=== PATIENT | male | born 1965 | race Caucasian/White ===

== ENCOUNTER → 2023-11-02 14:39 | Outpatient (REF) | payer BC, SELFPAY | LOC: DHCBS MAIN 14:39 | PROVIDERS: ATTENDING PHYSICIAN Internal Medicine Cardiovascular Disease; FAMILY PHYSICIAN Internal Medicine | DX: R00.2 Palpitations (principal) | CPT/HCPCS: 93306 ==

== ENCOUNTER → 2024-12-20 06:37 | Outpatient (REF) | payer OTHER, SELFPAY | LOC: RCS 06:37 | PROVIDERS: ATTENDING PHYSICIAN Internal Medicine Cardiovascular Disease; FAMILY PHYSICIAN Internal Medicine | DX: I48.91 Unspecified atrial fibrillation (principal); R06.02 Shortness of breath | CPT/HCPCS: 93306 ==

== ENCOUNTER 2025-01-25 06:47 | Day surgery (SDC) | payer OTHER, SELFPAY ==
--- NOTE | 2025-01-10 12:51 | HPS.HSE ---
Family Physician
-
Family Physician: NO INTERVIEW UNKNOWN
Chief Complaint
-
Paroxysmal atrial fibrillation.
History of Present Illness
The patient is a 59-year-old male presenting today for paroxysmal atrial fibrillation. The patient reports a history of intermittent palpitations, lightheadedness, exertional dyspnea, and fatigue secondary to this diagnosis. He was taking
Metoprolol Succinate for pharmacological therapy but this was stopped due to reported intolerability. He was previously advised to start Eliquis; however, he ran out of samples and the cost of the medication was rather expensive. He will be
restarted on this medication as of 01/09/2025. He notes that his current symptoms associated with his atrial fibrillation greatly interfere with his activities of daily living and overall impact his quality of life. He is interested in pursuing with
pulmonary vein isolation for further arrhythmia management. Prior to undergoing his ablation, he will proceed with a transesophageal echocardiogram given his recent non-compliance with Eliquis and, therefore, increased risk for a left atrial
appendage thrombus. He denies any current complaints today such as chest pain, shortness of breath at rest, nausea, vomiting, diarrhea, dizziness, cough, sore throat, or fever.
Medical History
Past Medical History
Past Medical History: Reports Other
Additional Past Medical History:
1. Paroxysmal atrial fibrillation, newly restarted on Eliquis for oral anticoagulation.
2. Hyperlipidemia.
3. GERD.
4. Nonobstructive Schatzki ring.
5. Peptic ulcer disease.
6. Colon polyps.
7. Diverticulosis.
8. Irritable bowel syndrome.
9. Probable liver hemangioma.
10. Migraines.
11. ADHD.
12. Anxiety.
13. Depression.
Past Surgical History: Reports Other
Additional Past Surgical History:
1. Left ACL repair.
2. Colonoscopy x5.
3. Endoscopy.
Social History
Tobacco: Non-smoker
Alcohol: Other (Social. )
Personal:
Living: Other (The patient lives in a two-story home with his .)
Family History
Family History: Not pertinent
Allergies / Home Medications
Allergy/Medication List:
Home medications:
1. Alprazolam 0.5 mg p.o. daily as needed.
2. Apixaban 5 mg p.o. twice a day.
3. Biotin one capsule p.o. daily.
4. Adderall XR 10 mg p.o. daily as needed.
5. Escitalopram 5 mg p.o. daily.
6. Fish oil one capsule p.o. daily.
7. Ibuprofen 600 mg p.o. every six hours as needed.
8. Probiotic one capsule p.o. daily.
Allergies: No known allergies.
Review of Systems
-
A 12 point ROS was completed and negative except as noted: Yes
Physical Exam
Vital Signs
VITAL SIGNS: Blood pressure 114/80, heart rate 58, respirations 18, pulse ox 99% on room air.
Height 5 feet 9 inches, weight 78.7 kg, BMI 25.6.
Physical Exam
General: Well Developed, Well Nourished and No Apparent Distress
HEENT: NormoCephalic, Moist mucous membranes, Atraumatic and PERRLA
Respiratory: Clear
Cardiac: Bradycardia
GI: Soft, Non Tender and Non Distended
Musculoskeletal: No Edema and Normal Gait & Station
Skin: Warm and Dry
Neuro: AO x 3 and Nonfocal/grossly intact
Laboratory Results
-
DIAGNOSTIC STUDIES as of 01/09/2025: White blood cell count 4.8, hemoglobin is 14.3, platelet count 172,000. PT 13.4, INR 0.97. Sodium 137, potassium 4.4, BUN 14, creatinine 0.9, glucose 96, calcium 9.1, magnesium 2.0, AST 24, ALT 21, albumin 4.6.
Blood type O negative.
EKG 01/09/2025: Sinus bradycardia, otherwise normal EKG. When compared with the EKG of September 02, 2022, no significant change was found.
Chest CT 01/09/2025: Short segment common vestibule for the left superior and inferior pulmonary veins, fairly commonly seen and considered normal variant. No evidence for left atrial thrombus.
Echocardiogram 12/20/2024: Ejection fraction is 60%. Trace mitral regurgitation with normal left atrium. The study is similar to the prior study of October 2020.
Stress echocardiogram 10/13/2022: Normal stress echocardiogram with normal hemodynamic response to exercise. Overall low risk stress test.
Impression/Plan
-
IMPRESSION/PLAN:
1. Paroxysmal atrial fibrillation: The patient is in need of pulmonary vein isolation. Prior to undergoing this, however, he will proceed with a transesophageal echocardiogram with Dr. Umair Freeman on 01/25/2025 to definitively rule out a left
atrial appendage thrombus. The benefits and risks of the procedure have been explained to the patient. The patient understands these risks and wishes to proceed. Strict compliance with his newly prescribed Eliquis was advised pre-operatively.
== END 2025-01-25 09:47 | disposition home or self-care (01) ==
LOC: CATH 06:47
PROVIDERS: ATTENDING PHYSICIAN Internal Medicine Cardiovascular Disease; FAMILY PHYSICIAN Nurse Practitioner
DX: I48.0 Paroxysmal atrial fibrillation (principal); I08.3 Combined rheumatic disorders of mitral, aortic and tricuspid valves; I70.0 Atherosclerosis of aorta; E78.5 Hyperlipidemia, unspecified; K21.9 Gastro-esophageal reflux disease without esophagitis; K22.2 Esophageal obstruction; Z86.0100 Personal history of colon polyps, unspecified; K58.9 Irritable bowel syndrome, unspecified; G43.909 Migraine, unspecified, not intractable, without status migrainosus; F41.9 Anxiety disorder, unspecified; F32.A Depression, unspecified; Z79.899 Other long term (current) drug therapy; F90.9 Attention-deficit hyperactivity disorder, unspecified type
CPT/HCPCS: 93312; 93320; 93325

== ENCOUNTER 2025-01-29 08:37 | Day surgery (SDC) | payer OTHER, SELFPAY ==
[2025-01-09 09:05] VITALS: BMI 25.6
[2025-01-09 09:23] LABS: % Basophils 0.6 % (0-2); % Eosinophils 1.3 % (0-6); % Immature Granulocytes 0.2 % (0-0.5); % Lymphocytes 31.7 % (20.5-51.1); % Monocytes 6.5 % (1.7-9.3); % Neutrophils 59.7 % (42.2-75.2); Absolute Eosinophils 0.1 10^3/uL (0-0.7); Absolute Lymphocytes 1.5 10^3/uL (1.2-3.4); Absolute Monocytes 0.3 10^3/uL (0.1-0.6); Absolute Neutrophils 2.9 10^3/uL (1.4-6.5); Hemoglobin 14.3 g/dL (13.0-18.0); Mean Corp Hgb Conc. 35.8 g/dL (33.0-37.0); Mean Corpuscular Hgb 29.4 pg (27.0-31.0); Mean Corpuscular Volume 82.1 fL (80.0-94.0); Mean Platelet Volume 9.5 fL (7.4-10.4); Nucleated Red Blood Cells % 0 % (-); Platelet Count 172 10^3/uL (130-400); Red Blood Cell Count 4.87 10^6/uL (4.70-6.10); Red Cell Dist. Width 12.2 % (11.5-14.5); White Blood Cell Count 4.8 10^3/uL (4.8-10.8)
[2025-01-09 09:35] LABS: ALT (SGPT) 21 U/L (0-50); AST (SGOT) 24 U/L (17-59); Albumin 4.6 g/dl (3.5-5.0); Alkaline Phosphatase 59 U/L (38-126); Blood Urea Nitrogen 14 mg/dl (9-20); Calcium 9.1 mg/dl (8.4-10.2); Carbon Dioxide 28 mmol/L (22-30); Chloride 101 mmol/L (98-107); Estimated Creatinine Clearance 87 ml/min; Glucose 96 mg/dl (70-99); Potassium 4.4 mmol/L (3.5-5.1); Sodium 137 mmol/L (135-145); Total Bilirubin 0.6 mg/dl (0.2-1.3); eGFR > 60.00
[2025-01-09 09:41] LABS: INR 0.97; PT 13.4 Sec (11.4-14.6)
[2025-01-29] VITALS (14 sets, daily range): BP systolic 103–135; BP diastolic 62–87
--- NOTE | 2025-01-29 11:39 | ITS.CL.ABL ---
[employer] - Ablation
Ablation
Procedure Report:
Primary Communications Technologist: Dr. Sukumar Sanchez
Procedure Date: 01/29/2025
Patient History:
Patient is a pleasant 59-year-old male with a past medical history significant for anxiety, ADHD, palpitations, family history of coronary disease, GERD, migraines, IBS, and symptomatic paroxysmal atrial fibrillation.
See H&P for complete details.
Indication:
Symptomatic paroxysmal atrial fibrillation
Arrhythmia Specific History:
Prior Medical Therapies for Rate and Rhythm Control:
X Beta-kacie
[ ] Calcium channel-kacie
[ ] Amiodarone
[ ] Dronederone
[ ] Sotalol
[ ] Flecainide
[ ] Dofetilide
[ ] Options limited by bradycardia
[ ] Options limited by comorbid renal disease
Prior Procedural Therapies for AF/AFL:
[ ] Cardioversion
[ ] Pulmonary Vein Isolation
[ ] Posterior Wall Isolation
[ ] Additional lines (Specify)
[ ] Surgical Dewitt-MAZE or PVI (Specify)
Procedure Performed:
X AF ablation procedure (13187) -- includes LA/CS pacing, trans-septal, 3D mapping, + ICE (PVI)
[ ] +IV drug (11562)
[ ] +Other Arrhythmia (11829)
[ ] +Other AF Line/ablation (04862)
Risks and expected recovery has been explained in detail. Alternative options have been explored, and in a shared-decision making fashion we have decided that this was the most appropriate procedure.
Method
NPO status confirmed. Grounding pad applied. Defibrillator pads applied. Continuous surface ECG, pulse oximetry, and blood pressure were monitored. Procedure was performed under general anesthesia, with anesthesia services.
Both groins were clipped, prepped with Chloraprep, and draped in sterile fashion. Time out was called. Local anesthesia administered with bupivacaine. The right femoral vein was accessed for catheter placement, using ultrasound guidance (images
saved to record), micro-puncture needle/wire, and modified seldinger technique. 3 sheaths were placed. The following catheters were used:
[ ] Tacticath SE (D/F Curve) ablation catheter
X Viewflex 9Fr ICE catheter
X Inquiry decapolar 6Fr diagnostic catheter
[ ] CRD Hex 6Fr
[ ] Arctic Front Advance Cryoballoon ([ ]28mm[ ]23mm)
[ ] Achieve Advance mapping catheter ([ ]15mm[ ]20mm)
X FlexCath Contour 10 Fr with PulseSelect PFA Catheter
X Advisor HD Grid Mapping Catheter, SE
[ ] AcusHiringThing AcuNav 8 Fr ICE catheter
[ ]Other: [ ]
Intracardiac ultrasound (ICE) was carefully advanced into the right atrium to guide sheath placement over a J-wire, catheter placement, guide trans-septal puncture, identify potential complications, identify anatomic structures and ensure proper
contact between ablation catheter and tissue.
Heparin was given prior to trans-septal puncture. Heparin was given to achieve and maintain a target ACT of 300-400 seconds throughout the procedure.
Trans-septal access was performed under ICE guidance. The trans-septal puncture was performed with a SafeSept wire through a Brockenbrough needle assembly through the steerable sheath. The wire was visualized as it entered the LSPV and system
advanced under ICE guidance and fluoroscopy into the LA. The Brockenbrough needle assembly, SafeSept wire and sheath dilator were removed under negative pressure. LA pressure was measured and recorded.
ICE and 3D mapping was performed to identify relevant cardiac structures. A careful 3D map was created to assess for regions of low-voltage and abnormal electrogram signals using HD grid mapping catheter and PulseSelect catheter. Additional mapping
was performed as outlined below. Patient was noted to have a left superior and inferior veins entering into a common ostium with separate right-sided superior and inferior veins.
Prior to ablation, glycopyrrolate was provided. PulseSelect catheter was advanced over J-wire to the ostium of each vein. Pulmonary vein isolation was performed with ostial and antral lesions in a circumferential manner. Contact was visualized via
EAM, ICE, fluoroscopy, and EGM signals. Following completion of ablation lesions, a post-ablation voltage/activation map was performed in sinus rhythm. Entrance and exit block were confirmed for each vein.
Catheter and sheath were removed from the left atrium and post-ablation intracardiac echo evaluation was consistent with pre-ablation with no changes and no pericardial effusion and there is no left atrial thrombus or left ventricle thrombus seen.
Electrophysiology study was performed. Hemostasis was obtained with Vascade for each sheath and with manual pressure. Protamine was used for reversal.
Estimated Blood Loss
5 mL
Complications
None
Fluoroscopy: 2.6 minutes; 7.21 mGy; DAP 0.8
LA Pressure: Pre 1 mmHg, post 2 mmHg
Baseline Intervals:
Rhythm: SR
LA: 133 ms
QRS: 82 ms
QT: 371 ms
QTc: 343 ms
Post-Procedure Intervals:
LA: 133 ms
QRS: 82 ms
QT: 399 ms
QTc: 406 ms
AVWB: 480 ms
AVNERP: 600/250 ms
AERP: 600/240 ms
Recommendations
- Bedrest with straight-leg precautions as ordered
- Anticipate same day discharge if patient meeting clinical metrics
- Resume home medications as indicated
- Ok to resume anticoagulation tonight if patient and groin sites stable
- PPI daily for 30 days
- Plan for follow-up in office as scheduled
Mc Horan DO, FACC, RS
Clinical Cardiac Event Executive
cc: Dr Sukumar Sanchez; Dr Ale Marino
[2025-01-29 12:20] LABS: ACT-LR - POC 376 Seconds (116-155)
[2025-01-29 13:16] LABS: ACT-LR - POC 161 Seconds (116-155)
[2025-01-29 14:47] LABS: ACT-LR - POC > 397 Seconds (116-155)
[2025-01-29 14:47] LABS: ACT-LR - POC > 397 Seconds (116-155)
[2025-01-29 14:47] LABS: ACT-LR - POC > 397 Seconds (116-155)
--- NOTE | 2025-01-29 17:30 | W.PN.UPDATE ---
Update Note
Progress Note Update
Pt seen post PFA. Right groin site with vascade closure, no ht/bleeding, oob ambulating, urinating without difficulty. Post EKG NSR 70s, no acute changes. Resume eliquis tonight at usual time. Followup at [facility] arranged. Home today if groin site/tele
remain stable.
== END 2025-01-29 16:15 | disposition home or self-care (01) ==
LOC: CATH 08:37
PROVIDERS: ATTENDING PHYSICIAN Internal Medicine Cardiovascular Disease; FAMILY PHYSICIAN Internal Medicine; OTHER PHYSICIAN Internal Medicine Interventional Cardiology
DX: I48.0 Paroxysmal atrial fibrillation (principal); E78.5 Hyperlipidemia, unspecified; F32.A Depression, unspecified; F90.9 Attention-deficit hyperactivity disorder, unspecified type; F41.9 Anxiety disorder, unspecified; K58.9 Irritable bowel syndrome, unspecified; Z79.01 Long term (current) use of anticoagulants; Z79.899 Other long term (current) drug therapy; Z86.0100 Personal history of colon polyps, unspecified; Z88.0 Allergy status to penicillin; Z82.49 Family history of ischemic heart disease and other diseases of the circulatory system
CPT/HCPCS: C1732; C1760; C1894; C1733; C1766; C1769; 36415; 75572; 80053; 83735; 85025; 85347; 85610; 86850; 86900; 86901; 93005; 93656; Q9967